=== PATIENT | male | born 1990 | race American Indian/Alaskan Native ===

== ENCOUNTER 2019-07-16 13:36 | Emergency (ER) | payer SELFPAY ==
[2019-07-16 13:42] VITALS: BP 124/69
--- NOTE | 2019-07-16 13:59 | Event Note ---
ED Screening Note Date of service: 07/16/19 Time: 13:58 ED Screening Note: 28 y/o male comes in for bilateral red eye and tearing times 3 days. Denies any discharge from eyes. This initial assessment/diagnostic orders/clinical plan/treatment(s) is/are subject to change based on patients health status, clinical progression and re- assessment by fellow clinical providers in the ED. Further treatment and workup at subsequent clinical providers discretion. Patient/guardian urged not to elope from the ED as their condition may be serious if not clinically assessed and managed. Initial orders include:
--- NOTE | 2019-07-16 14:42 | Emergency Department Report ---
ED General Adult HPI - General Chief complaint: Eye Problems Stated complaint: RED EYES Time Seen by Provider: 07/16/19 13:57 Source: patient Mode of arrival: Ambulatory Limitations: No Limitations - History of Present Illness Initial comments: 28-year-old male with bilateral eye redness and crusty discharge occasionally for the last 3 days. He states he got this "at work". He utilized his sister's antibiotic eyedrops 1 day. He reports no change in vision. He denies sore throat or any other symptoms. -: Gradual, days(s) Associated Symptoms: denies other symptoms - Related Data Previous Rx's Medication Instructions Recorded Last Taken Type Sulfacetamide Sodium 15 ml OP TID #1 bottle 07/16/19 Unknown Rx [Sulfacetamide Sodium 10%] Allergies Allergy/AdvReac Type Severity Reaction Status Date / Time No Known Allergies Allergy Unverified 07/16/19 14:00 ED Review of Systems ROS: Stated complaint: RED EYES Other details as noted in HPI Comment: All other systems reviewed and negative ED Past Medical Hx - Past Medical History Previous Medical History?: No - Surgical History Past Surgical History?: No - Social History Smoking Status: Never Smoker Substance Use Type: Marijuana - Medications Home Medications: Home Medications Medication Instructions Recorded Confirmed Last Taken Type Sulfacetamide Sodium 15 ml OP TID #1 bottle 07/16/19 Unknown Rx [Sulfacetamide Sodium 10%] ED Physical Exam - General Limitations: No Limitations General appearance: alert, in no apparent distress - Head Head exam: Present: atraumatic, normocephalic - Eye Eye exam: Present: PERRL, EOMI, conjunctival injection (quite erythematous), other (anterior chamber and cornea are clear) - ENT ENT exam: Present: normal orophraynx, mucous membranes moist - Neck Neck exam: Present: normal inspection - Respiratory Respiratory exam: Absent: respiratory distress - Cardiovascular Cardiovascular Exam: Absent: systolic murmur, diastolic murmur, rubs, gallop - Extremities Exam Extremities exam: Present: normal inspection - Back Exam Back exam: Present: normal inspection - Neurological Exam Neurological exam: Present: alert, oriented X3, CN II-XII intact. Absent: motor sensory deficit (on observational exam) - Psychiatric Psychiatric exam: Present: normal affect, normal mood - Skin Skin exam: Present: warm, dry, intact, normal color. Absent: rash ED Course Vital Signs 07/16/19 13:41 Temperature 98.3 F Pulse Rate 83 Respiratory 16 Rate Blood Pressure 124/69 O2 Sat by Pulse 99 Oximetry Critical care attestation.: If time is entered above; I have spent that time in minutes in the direct care of this critically ill patient, excluding procedure time. ED Disposition Clinical Impression: Bilateral conjunctivitis Qualifiers: Conjunctivitis type: unspecified Qualified Code(s): H10.9 - Unspecified conjun ctivitis Disposition: TO HOME OR SELFCARE Is pt being admited?: No Does the pt Need Aspirin: No Condition: Stable Instructions: Conjunctivitis (ED) Additional Instructions: See wallpaper cleaner any persistent problem. Return as needed any acute change. Prescriptions: Sulfacetamide Sodium [Sulfacetamide Sodium 10%] 15 ml OP TID #1 bottle Referrals: PANFILO FRANCOIS MD [Staff Physician] - 3-5 Days Time of Disposition: 14:41
== END 2019-07-16 15:15 | disposition home or self-care (01) ==
LOC: ED 13:36
DX: H10.9 Unspecified conjunctivitis (principal); F12.10 Cannabis abuse, uncomplicated; Z79.899 Other long term (current) drug therapy